=== PATIENT | male | born 1950 | race Caucasian/White ===

== ENCOUNTER 2021-09-30 13:00 | Emergency (ER) | payer MEDICARE ==
[2021-09-30 13:55] VITALS: BP 130/72; PULSE 90; RESP 18; TEMP 97.9
[2021-09-30 14:19] LABS: Basophils % (A) 0 %; Eosinophils # (A) 0.1 k/uL (0-0.7); Eosinophils % (A) 1 %; HCT 38.6 % (39.0-53.0); HGB 12.3 gm/dL (13.0-17.5); Hypochromasia Slight; Lymphocytes # (A) 1.3 k/uL (1.0-4.8); Lymphocytes % (A) 26 %; MCH 39.4 pg (25.0-35.0); MCHC 31.8 g/dL (31.0-37.0); MCV 123.6 fL (80.0-100.0); Macrocytosis Marked; Mean Platelet Volume 9.5; Monocytes # (A) 0.4 k/uL (0-1.0); Monocytes % (A) 7 %; Neutrophils # (A) 3.2 k/uL (1.3-7.7); Neutrophils % (A) 63 %; RBC 3.12 m/uL (4.30-5.90); RDW 14.6 % (11.5-15.5); WBC 5.1 k/uL (3.8-10.6)
[2021-09-30 14:55] LABS: ALT 14 U/L (4-49); AST 104 U/L (17-59); African American GFR (CKD) >90 (>60 ml/min/1.73 sqM); Albumin 3.8 g/dL (3.5-5.0); Alkaline Phosphatase 302 U/L (38-126); Anion Gap 11 mmol/L; Blood Urea Nitrogen 7 mg/dL (9-20); Calcium 8.6 mg/dL (8.4-10.2); Carbon Dioxide 25 mmol/L (22-30); Chloride 108 mmol/L (98-107); Glucose 135 mg/dL (74-99); Non-African American GFR(CKD) >90 (>60 ml/min/1.73 sqM); Potassium 3.7 mmol/L (3.5-5.1); Sodium 144 mmol/L (137-145); Total Bilirubin 1.9 mg/dL (0.2-1.3)
[2021-09-30 15:36] LABS: Platelet Count 40 k/uL (150-450)
--- NOTE | 2021-09-30 18:19 | US ---
EXAMINATION TYPE: US venous doppler duplex LE LT DATE OF EXAM: 09/30/2021 6:07 PM COMPARISON: NONE CLINICAL HISTORY: swelling. Left leg swelling SIDE PERFORMED: Left TECHNIQUE: The lower extremity deep venous system is examined utilizing real time linear array sonog pedro with graded compression, doppler sonography and color-flow sonography. VESSELS IMAGED: Common Femoral Vein Deep Femoral Vein Greater Saphenous Vein * Femoral Vein Popliteal Vein Small Saphenous Vein * Proximal Calf Veins (* superficial vessels) Left Leg: Appears negative for DVT Grayscale, color doppler, spectral doppler imaging performed of the deep veins of the lower extremiti es. There is normal flow, compressibility, vascular waveforms. IMPRESSION: No evidence for deep vein thrombosis of the left lower extremity.
--- NOTE | 2021-09-30 19:00 | ED ---
Lower Extremity Injury HPI - General Chief Complaint: Extremity Injury, Lower Stated Complaint: Burst blood vessel,Leg swelling Time Seen by Provider: 09/30/21 16:38 Source: patient Mode of arrival: ambulatory - History of Present Illness Initial Comments: 8-year-old male presents emergency department for left lower externally swelling. Reports that he has had swelling for the past 2 days. No history of DVT or PE. No chest pain or shortness of breath. He denies any weakness or numbness. No history of strokes. He does admit to some left arm swelling. This happened one week ago after he dropped a box on his left arm. He saw his primary care physician and was diagnosed with a hematoma. He states that it has gotten incredibly smaller in size. Patient is not on any blood thinners. No fevers. No headaches or visual changes. No other alleviating, precipitating m odifying factors - Related Data Allergies Allergy/AdvReac Type Severity Reaction Status Date / Time No Known Allergies Allergy Verified 09/30/21 13:55 Review of Systems ROS Statement: Those systems with pertinent positive or pertinent negative responses have been documented in the HPI. ROS Other: All systems not noted in ROS Statement are negative. Past Medical History Additional Past Medical History / Comment(s): leaky valve History of Any Multi-Drug Resistant Organisms: None Reported Past Surgical History: No Surgical Hx Reported Past Psychological History: No Psychological Hx Reported Smoking Status: Never smoker Past Alcohol Use History: Daily Past Drug Use History: None Reported General Exam General appearance: alert, in no apparent distress Head exam: Present: atraumatic, normocephalic, normal inspection Eye exam: Present: normal appearance, PERRL, EOMI. Absent: scleral icterus, conjunctival injection, periorbital swelling ENT exam: Present: normal exam, mucous membranes moist Neck exam: Present: normal inspection. Absent: tenderness, meningismus, lymphadenopathy Respiratory exam: Present: normal lung sounds bilaterally. Absent: respiratory distress, wheezes, rales, rhonchi, stridor Cardiovascular Exam: Present: regular rate, normal rhythm, normal heart sounds. Absent: systolic murmur, diastolic murmur, rubs, gallop, clicks GI/Abdominal exam: Present: soft, normal bowel sounds. Absent: distended, tenderness, guarding, rebound, rigid Extremities exam: Present: full ROM, normal capillary refill, pedal edema, other (hematoma left arm, 3 cm. 1+ edema left leg). Absent: tenderness, joint swelling, calf tenderness Back exam: Present: normal inspection Neurological exam: Present: alert, oriented X3, CN II-XII intact Psychiatric exam: Present: normal affect, normal mood Skin exam: Present: warm, dry, intact, normal color. Absent: rash Course Vital Signs 09/30/21 13:47 Temperature 97.9 F Pulse Rate 90 Respiratory 18 Rate Blood Pressure 130/72 O2 Sat by Pulse 96 Oximetry Medical Decision Making - Medical Decision Making On arrival patient was placed into the hallway 10. Thorough history and p hysical exam was performed. Patient does have a hematoma of his left upper extremity which the patient remarks is greatly improved. He does have 1+ edema of his left lower extremity. Ultrasound is performed as well as laboratory studies. Laboratory studies reveal an MCV of 123 and platelets of 40. BNP 131. Ultrasound negative for DVT. Results are discussed with the patient. Does admit to daily alcohol use. Denies history of trauma cytopenia. No active bleeding at this time. Patient is informed that he must decrease his alcohol intake and recommend cessation. He must follow up with his primary care doctor within 2 weeks to have repeat platelet count performed. Instructed that if he has any new or worsening symptoms to include bleeding or head injury he must return to the emergency room. Patient understood this and was discharged home in stable condition - Lab Data Result diagrams: 09/30/21 14:06 09/30/21 14:06 Lab Results 09/30/21 09/30/21 09/30/21 Range/Units 14:06 14:06 14:06 WBC 5.1 (3.8-10.6) k/uL RBC 3.12 L (4.30-5.90) m/uL Hgb 12.3 L (13.0-17.5) gm/dL Hct 38.6 L (39.0-53.0) % MCV 123.6 H (80.0-100.0) fL MCH 39.4 H (25.0-35.0) pg MCHC 31.8 (31.0-37.0) g/dL RDW 14.6 (11.5-15.5) % Plt Count 40 L (150-450) k/uL MPV 9.5 Neutrophils % 63 % Lymphocytes % 26 % Monocytes % 7 % Eosinophils % 1 % Basophils % 0 % Neutrophils # 3.2 (1.3-7.7) k/uL Lymphocytes # 1.3 (1.0-4.8) k/uL Monocytes # 0.4 (0-1.0) k/uL Eosinophils # 0.1 (0-0.7) k/uL Basophils # 0.0 (0-0.2) k/uL Manual Slide Review Performed Hypochromasia Slight Macrocytosis Marked A Sodium 144 (137-145) mmol/L Potassium 3.7 (3.5-5.1) mmol/L Chloride 108 H (98-107) mmol/L Carbon Dioxide 25 (22-30) mmol/L Anion Gap 11 mmol/L BUN 7 L (9-20) mg/dL Creatinine 0.61 L (0.66-1.25) mg/dL Est GFR (CKD-EPI)AfAm >90 (>60 ml/min/1.73 sqM) Est GFR (CKD-EPI)NonAf >90 (>60 ml/min/1.73 sqM) Glucose 135 H (74-99) mg/dL Calcium 8.6 (8.4-10.2) mg/dL Total Bilirubin 1.9 H (0.2-1.3) mg/dL AST 104 H (17-59) U/L ALT 14 (4-49) U/L Alkaline Phosphatase 302 H (38-126) U/L Troponin I <0.012 (0.000-0.034) ng/mL NT-Pro-B Natriuret Pep pg/mL Total Protein 7.0 (6.3-8.2) g/dL Albumin 3.8 (3.5-5.0) g/dL 09/30/21 Range/Units 14:06 WBC (3.8-10.6) k/uL RBC (4.30-5.90) m/uL Hgb (13.0-17.5) gm/dL Hct (39.0-53.0) % MCV (80.0-100.0) fL MCH (25.0-35.0) pg MCHC (31.0-37.0) g/dL RDW (11.5-15.5) % Plt Count (150-450) k/uL MPV Neutrophils % % Lymphocytes % % Monocytes % % Eosinophils % % Basophils % % Neutrophils # (1.3-7.7) k/uL Lymphocytes # (1.0-4.8) k/uL Monocytes # (0-1.0) k/uL Eosinophils # (0-0.7) k/uL Basophils # (0-0.2) k/uL Manual Slide Review Hypochromasia Macrocytosis Sodium (137-145) mmol/L Potassium (3.5-5.1) mmol/L Chloride (98-107) mmol/L Carbon Dioxide (22-30) mmol/L Anion Gap mmol/L BUN (9-20) mg/dL Creatinine (0.66-1.25) mg/dL Est GFR (CKD-EPI)AfAm (>60 ml/min/1.73 sqM) Est GFR (CKD-EPI)NonAf (>60 ml/min/1.73 sqM) Glucose (74-99) mg/dL Calcium (8.4-10.2) mg/dL Total Bilirubin (0.2-1.3) mg/dL AST (17-59) U/L ALT (4-49) U/L Alkaline Phosphatase (38-126) U/L Troponin I (0.000-0.034) ng/mL NT-Pro-B Natriuret Pep 131 pg/mL Total Protein (6.3-8.2) g/dL Albumin (3.5-5.0) g/dL - EKG Data EKG Comments: EKG demonstrates sinus rhythm with a rate of 81. [place] interval 171. QRS 87. QTC of 421. No acute ST segment elevations or depressions Disposition Clinical Impression: Left leg swelling, Thrombocytopenia, Alcohol use Disposition: HOME SELF-CARE Condition: Stable Instructions (If sedation given, give patient instructions): Thrombocytopenia (ED) Additional Instructions: Please decrease your alcohol intake. I need your primary care to reevaluate your platelet count in 2 weeks. If you fall and have any head injury, you need to present to the emergency room immediately Is patient prescribed a controlled substance at d/c from ED?: No Referrals: Jose Cartwright MD [Primary Care Provider] - 1-2 days Time of Disposition: 19:00
== END 2021-09-30 19:07 | disposition home or self-care (01) ==
LOC: EC 13:00
DX: R22.42 Localized swelling, mass and lump, left lower limb (principal); R22.32 Localized swelling, mass and lump, left upper limb; D69.6 Thrombocytopenia, unspecified; F10.99 Alcohol use, unspecified with unspecified alcohol-induced disorder; Y90.9 Presence of alcohol in blood, level not specified
CPT/HCPCS: 36415; 80053; 83880; 84484; 85025; 93005; 99284